=== PATIENT | female | born 1980 | race Caucasian/White ===

== ENCOUNTER 2020-11-30 09:53 | Emergency (ER) | payer OTHER ==
[~2020-11-30] VITALS: Ht 172.7 cm; Wt 81.6 kg
[2020-11-30 10:38] LABS: HEMOGLOBIN 13.3 gm/dl (12.3-15.3); RED BLOOD COUNT 4.67 M/UL (4.00-5.10); WHITE BLOOD COUNT 3.6 K/UL (4.5-11.0)
[2020-11-30 11:12] LABS: BUN/CREATININE RATIO 12 (0-10)
== END 2020-11-30 14:45 | disposition home or self-care (01) ==
LOC: ER1 09:53
PROVIDERS: Emergency Medicine
DX: Z23 Encounter for immunization (principal); U07.1 COVID-19; J12.82 Pneumonia due to coronavirus disease 2019
CPT/HCPCS: 71045; 80053; 82550; 82553; 83874; 84484; 84703; 85025; 85379; 87040; 99284; J7030; M0243; Q9967; U0002

== ENCOUNTER 2021-06-16 15:41 | Emergency (ER) | payer OTHER | END 2021-06-16 17:32 | disposition home or self-care (01) | LOC: ER1 15:41 | DX: M79.661 Pain in right lower leg (principal) | CPT/HCPCS: 93971; 99283 ==